=== PATIENT | male | born 1960 | race American Indian/Alaskan Native ===

== ENCOUNTER 2016-10-21 20:37 | Emergency (ER) | payer OTHER ==
--- NOTE | 2016-10-21 22:22 | XRay Report ---
FINAL REPORT PROCEDURE: Left index finger. TECHNIQUE: Three views. HISTORY: Laceration to left hand index finger. COMPARISON: No prior studies are available for comparison. FINDINGS: There is a fracture through the distal end of the distal phalanx. The very distal tuft has been amputated. There is missing soft tissue. There are no radiopaque foreign bodies. The joint spaces appear satisfactory. IMPRESSION: Fracture of the distal phalanx with partial amputation of the osseous tuft and soft tissue.
[2016-10-22] MEDS ORDERED: NORCO 7.5/325 ONE (03:06)
[2016-10-22] MEDS ORDERED: NACL 0.9% 500 ML IR ONE (03:06)
[2016-10-22] MEDS ORDERED: NORCO 7.5/325 PO ONE (03:10)
[2016-10-22] MEDS ORDERED: NACL 0.9% IR ONE (03:10)
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
[2016-10-22 09:41] VITALS: BP 149/86
== END 2016-10-22 04:04 | disposition home or self-care (01) ==
LOC: ED 20:37
DX: S68.121A Partial traumatic metacarpophalangeal amputation of left index finger, initial encounter (principal); F17.200 Nicotine dependence, unspecified, uncomplicated; F12.10 Cannabis abuse, uncomplicated; X58.XXXA Exposure to other specified factors, initial encounter; Y93.89 Activity, other specified; Y92.89 Other specified places as the place of occurrence of the external cause; Y99.8 Other external cause status